=== PATIENT | male | born 1955 | race Caucasian/White ===

== ENCOUNTER 2021-06-10 13:27 | Outpatient (CLI) | payer MEDICARE, MEDICAID | END 2021-06-10 23:59 | disposition home or self-care (01) | LOC: RAD 13:27 | PROVIDERS: ATTEND Psychiatry & Neurology Neurology | DX: G91.9 Hydrocephalus, unspecified (principal); G31.89 Other specified degenerative diseases of nervous system | CPT/HCPCS: 70551 ==